=== PATIENT | male | born 2000 | race Caucasian/White ===

== ENCOUNTER 2023-10-11 00:41 | Emergency (ER) | payer OTHER, SELFPAY ==
--- NOTE | ~2023-10-11 | CT_ITS ---
Clinical Indication: Hemoptysis CT Scan of the Chest with Contrast: Technique: Contiguous sections were acquired throughout the chest after intravenous administration of 100 cc of Omnipaque 350. Dose reduction technique was used on this scan by utilizing automated expos ure control and iterative reconstruction technique. The dose-length product (DLP) was 259.35 mGy-cm. Findings: There is no evidence of any significant mediastinal, hilar or axillary lymphadenopathy. There is no f illing defect in the pulmonary arterial tree to suggest pulmonary embolus. There is no evidence of ao rtic dissection or aneurysm. There is no evidence of pleural or pericardial effusion. The lungs are clear. No pulmonary nodules or infiltrates are noted. Images through the upper abdomen reveal no abnormalities. Impression: No evidence of pulmonary embolus, aortic dissection, or aortic aneurysm. Clear lungs. Reviewed, dictated and finalized at [facility]. Impression: No evidence of pulmonary embolus, aortic dissection, or aortic aneurysm. Clear lungs.
[2023-10-11 00:44] VITALS: BP 166/73; PULSE 110; RESP 20; TEMP 36.6; O2SAT 100
[2023-10-11 03:02] VITALS: O2SAT 98
[2023-10-11 03:51] LABS: Basophils Percent Auto 0.5 % (0.2-1.2); Eosinophils Absolute Auto 0.1 K/mm3 (0-0.3); Eosinophils Percent Auto 0.8 % (0-4.4); Hematocrit 40.3 % (42.0-52.0); Hemoglobin 13.6 g/dL (14.0-18.0); Immature Granulocyte Absolute 0.02 K/mm3 (0.00-0.031); Immature Granulocyte Percent A 0.2 % (0-0.5); Lymphocytes Absolute Auto 3.15 K/mm3 (0.9-3.2); Mean Corpuscular HGB Conc 33.7 g/dl (32-36); Mean Corpuscular Hemoglobin 29.6 pg (26-34); Mean Corpuscular Volume 87.6 fl (80-100); Mean Platelet Volume 9.7 fl (7.4-10.4); Monocytes Absolute Auto 0.8 K/mm3 (0.1-0.6); Monocytes Percent Auto 9.5 % (2.6-8.5); Neutrophils Absolute Auto 4.2 K/mm3 (1.3-6.7); Platelet Count Result 253 k/mm3 (150-375); Red Cell Distribution Width 11.9 % (11.5-14.5); White Blood Count 8.3 K/mm3 (4.5-10.0)
[2023-10-11 04:02] LABS: Alanine Aminotransferase 18 U/L (6-50); Albumin Level 4.8 g/dL (3.5-5.1); Alkaline Phosphatase 80 U/L (38-126); Anion Gap 14 mmol/L (4-12); Aspartate Amino Transferase 25 U/L (17-59); Bilirubin,Total 0.7 mg/dL (0.2-1.3); Blood Urea Nitrogen 14 mg/dL (9-20); Calcium 10.2 mg/dL (8.4-10.2); Carbon Dioxide 24 mmol/L (22-30); Chloride 99 mmol/L (98-107); Estimated CRCL calculation 144 ml/min; Estimated Glomerular Filt Rate > 60; Glucose 96 mg/dL (65-110); Potassium 3.5 mmol/L (3.4-5.0); Prothrombin Time 13.6 Seconds (11.1-14.7); Sodium 137 mmol/L (137-145)
[2023-10-11 04:03] LABS: Partial Thromboplastin Time 26.8 Seconds (22.3-36.8)
[2023-10-11 04:27] LABS: Influenza A QL RT-PCR Negative (Negative); Influenza B QL RT-PCR Negative (Negative); RSV RNA, RT-PCR Negative (Negative); SARS-CoV-2 RNA PCR Negative (Negative)
--- NOTE | 2023-10-11 04:51 | ED.GENADULT ---
HPI - General Adult General Chief complaint: Upper Respiratory Infection Stated complaint: Cough, coughing up blood Time Seen by Provider: 10/11/23 02:55 History of Present Illness HPI narrative: 22-year-old male presents emergency department for evaluation of hemoptysis. Patient states he had an episode a few weeks ago and then had some this evening. Patient states he has had a mild cough with congestion. Patient states he is coughing up blood-tinged sputum but denies any large clots. Patient does not smoke and does not vape. Patient is not on any blood thinners. Patient denies any other significant past medical history. Upon arrival emergency department patient is well-appearing and in no distress. Related Data Allergies Allergy/AdvReac Type Severity Reaction Status Date / Time No Known Allergies Verified 10/11/23 00:47 Review of Systems Review of Systems: All systems reviewed & are unremarkable except as noted in HPI and below PMFSH Family History Family History (Updated 11/23/13 @ 07:13 by DOCTOR UNKNOWN) Mother Family history of allergic disorder Social History Social History Gender identity (if verbalized by the patient): Male Exam Narrative: APPEARANCE: Well appearing, no pain, no distress, well-nourished. HEAD: normocephalic, atraumatic. EYES: PERRLA/EOMI, conjunctivae clear. NOSE: Normal no drainage EARS:TMS clear with good light reflex. THROAT: Pharynx clear, no exudate. NECK: Supple. No adenopathy, no masses. RESPIRATORY: Airway patent, respirations nonlabored. Clear to auscultation bilaterally, no rales, rhonchi, wheezing. CARDIOVASCULAR: Regular rate and rhythm without murmurs rubs or gallops. ABDOMINAL: Soft, nontender, nondistended, normal bowel sounds MUSCULOSKELETAL: Moves all extremities. Strength/ROM intact, No edema, No calf tenderness. NEURO: Alert. Cranial nerves II through XII intact. Good gait. Good coordination SKIN: Warm, dry. Normal Color Course Course Emergency Course: No evidence of pulmonary embolism or active hemorrhage. Patient was discharged to home. Vital Signs Vital signs: Vital Signs Temperature 97.8 F 10/11/23 00:44 Pulse Rate 110 H 10/11/23 00:44 Respiratory Rate 20 10/11/23 00:44 Blood Pressure 166/73 H 10/11/23 00:44 Pulse Oximetry 100 10/11/23 00:44 Oxygen Delivery Room Air 10/11/23 00:44 Temperature 97.8 F 10/11/23 00:44 Pulse Rate 99 10/11/23 05:26 Respiratory Rate 18 10/11/23 05:26 Blood Pressure 143/67 H 10/11/23 05:26 Pulse Oximetry 100 10/11/23 05:26 Oxygen Delivery Room Air 10/11/23 03:02 Medical Decision Making MDM Narrative Medical decision making narrative: 22-year-old male presents to the emergency department for evaluation for hemoptysis. Patient is afebrile with no ptosis stable hemoglobin 13.6. Patient has an INR of 1.0 with no acute abnormalities on his CMP, patient was negative for influenza RSV and for COVID. CTA shows no evidence pulmonary embolism, lungs are clear Differential Diagnosis Differential Diagnosis: Pulmonary embolism, pneumonia, pneumothorax, bronchitis Vital Signs Vital Signs: Vital Signs Temperature 97.8 F 10/11/23 00:44 Pulse Rate 110 H 10/11/23 00:44 Respiratory Rate 20 10/11/23 00:44 Blood Pressure 166/73 H 10/11/23 00:44 Pulse Oximetry 100 10/11/23 00:44 Oxygen Delivery Room Air 10/11/23 00:44 Temperature 97.8 F 10/11/23 00:44 Pulse Rate 99 10/11/23 05:26 Respiratory Rate 18 10/11/23 05:26 Blood Pressure 143/67 H 10/11/23 05:26 Pulse Oximetry 100 10/11/23 05:26 Oxygen Delivery Room Air 10/11/23 03:02 Lab Data Lab results reviewed: Yes I reviewed the patient's lab results. 10/11/23 03:42 10/11/23 03:42 Labs: Lab Results 10/11/23 Range/Units 03:42 WBC 8.3 (4.5-10.0) K/mm3 RBC 4.60 (4.6-6.20) M/mm3 Hgb 13.6 L (14.0-18.0) g/dL Hct 40.3 L (42.0-52.0) % MCV
[2023-10-11 05:26] VITALS: BP 143/67; PULSE 99; RESP 18; O2SAT 100
== END 2023-10-11 06:36 | disposition home or self-care (01) ==
PROVIDERS: Emergency Provider Emergency Medicine; PCP Family Medicine
DX: R04.2 Hemoptysis (principal); Z20.822 Contact with and (suspected) exposure to COVID-19
CPT/HCPCS: 36415; 71275; 80053; 85025; 85610; 85730; 87637; 99284; Q9967